=== PATIENT | female | born 1970 | race Caucasian/White ===

== ENCOUNTER 2017-02-16 09:54 | Outpatient (CLI) | payer OTHER | END 2017-02-16 09:55 | LOC: POD 09:54 | PROVIDERS: ATTEND Podiatrist Public Medicine | DX: L84 Corns and callosities (principal); M79.675 Pain in left toe(s); M79.674 Pain in right toe(s) | CPT/HCPCS: 99203 ==

== ENCOUNTER 2017-12-22 13:52 | Outpatient (CLI) | payer OTHER ==
--- NOTE | 2017-12-22 19:37 | Diagnostic Imaging Report ---
LYNNE BAPTISTE [facility] [id number] [facility] [address] [id number] Report Submission Date: Dec 22, 2017 2:44:55 PM CDT Patient Study Name: RADHIKA MCMANUS Date: Dec 22, 2017 1:52:45 PM CDT Modality Type: DX Gender: F Description: LOWER EXTREMITY : 74 Institution: [facility] Physician: LYNNE BAPTISTE Right ankle History: Ankle pain Three views of the right ankle were obtained which demonstrate a moderate-sized plantar calcaneal spur. There is no evidence for acute fracture or dislocation of the ankle. The talar dome and ankle mortise are intact. Projecting medially adjacent to the hindfoot, there is the a 7 mm ossific density which is probably chronic. Foot films could be obtained for further assessment this regard. Impression: No evidence for acute fracture or dislocation of the ankle. Projecting medially adjacent to the hindfoot, there is a 7 mm ossified disc which probably is chronic in nature. Plain films of the foot could be obtained for further assessment in this regard. Moderate-sized plantar calcaneal spur. Electronically signed on Dec 22, 2017 2:44:55 PM CDT by: [place] VICK
== END 2017-12-22 13:54 ==
LOC: RAD 13:52
PROVIDERS: ATTEND Physician Assistant
DX: M25.571 Pain in right ankle and joints of right foot (principal)
CPT/HCPCS: 73610